=== PATIENT | female | born 1965 | race Caucasian/White ===

== ENCOUNTER 2016-04-12 12:54 | Outpatient (CLI) | payer OTHER ==
[~2016-04-12] VITALS: Ht 167.6 cm; Wt 118.6 kg
[~2016-04-12 12:54] MED LIST: ASPI-664 PO; CEPH-443 PO; FER325 PO; HYDR-3498 PO; IBUP-1542 PO; INSU100C SC; LANT3I SC; MTF1000T PO; NS IRRIGATION TOPICAL; SERT50TA PO
[2016-04-12 13:16] VITALS: Ht 167.6 cm; Wt 118.6 kg
[2016-04-12 13:17] VITALS: BP 134/78; PULSE 108; RESP 18
--- NOTE | 2016-04-12 18:14 | CONS ---
[facility] INITIAL OUTPATIENT CONSULTATION NOTE PLACE OF SERVICE: [facility] DATE OF CONSULTATION: 04/12/2016 IMPRESSION AND PLAN: A very pleasant 51-year-old lady with 5 operations in her abdomen since 2003, four of which were for incarcerated hernias or complications of those, presenting with what appears to be a small seroma above her mesh and no evidence of major recurrence of her hernia. The fluid itself appears to be more consistent with seroma. My suspicion that this is infected is low, and the CT scan and her physical exam and clinical picture support this diagnosis. It would be important for us to have a review of the images by our radiologist, and if they believe that there is utility in sampling the fluid for cultures, we can certainly do so under ultrasound guidance. Fortunately, I do not see any indication for acute surgical intervention. I explained all of this to the patient and answered all her questions to the best of my ability. The patient appeared to understand and wished to proceed. With above assessment, I have recommended the followin. Review of images by Radiology. 2. Possible ultrasound-guided aspiration of fluid above the mesh and to culture this. 3. Follow up with us after above is done. Thank you again for allowing us to participate in the care of this very pleasant lady and I am certain her wonderful family. If there are any questions , please feel free to call me at [phone]. TOTAL VISIT TIME: Forty-five minutes, of which more than half was spent in face -to-face discussion with the patient (no family present during any of my discussions with the patient) as well as coordination of care between multiple physicians and providers. UPDATED CLINICAL SUMMARY: A very pleasant 51-year-old lady with a very complex past surgical history starting with cholecystectomy at [facility] in 2003 that was complicated by a ventral hernia requiring emergency operation on 10/24/[address] Jackie Vora at [facility] , where a mesh repair was performed. Repeat hernia repaired as an emergency on 10/05/2008 for incarceration with mesh placement by Dr. Jackie Vora. Repeat revision of the hernia at [facility] on 12/18/[address] Donato Henley with evacuation of a hematoma and resection of part of the mesh and a repeat operative repair of incarcerated incisional hernia, laparoscopic converted to open with placement of hernia mesh 15 x [address] Jose Ellison at [facility] on 08/18/2015. Presenting with abdominal pain. COMORBIDITIES: 1. Above-mentioned operations. 2. BMI 42.2. 3. Hyperlipidemia. 4. Diabetes mellitus type 2. 5. Hypertension. 6. Dysuria. 7. Diabetic retinopathy. 8. Depression. 9. Grief. HISTORY OF PRESENT ILLNESS: The patient is a very pleasant 51-year-old lady with complex past surgical history as outlined above and a number of medical issues who was kindly referred to us for surgical opinion regarding her abdomen. She has been complaining of having abdominal pain and on-and-off nausea and vomiting which she reports having 3 or 4 times a week. No reported fevers or chills, difficulties with diarrhea, although the patient does have chronic constipation. No blood in the stool or urine. Appetite has been down, but she has not reported any significant weight loss. ALLERGIES: NO KNOWN DRUG ALLERGIES. MEDICATIONS: 1. Aspirin. 2. Motrin. 3. Lantus. 4. Humalog. 5. Glucophage. 6. Zoloft. SOCIAL HISTORY: The patient lives with her family. She does not report any major smoking, drinking or intravenous drug use. FAMILY HISTORY: No reported major medical, surgical or oncologic problems in the family. REVIEW OF SYSTEMS: Other than the above mentioned, there are no other pertinent positives or pertinent negatives in a complete 14-point review of systems. PHYSICAL EXAMINATION: GENERAL: The patient appears to be a very pleasant lady of descent, appearing stated age, sitting in a chair comfortably and in no acute distress. Her BMI is 42.2. VITAL SIGNS: Her temperature is 99.0, blood pressure 134/78, pulse 108, respiratory rate 18, pulse oximetry 95% on room air. HEENT: Normocephalic and atraumatic. Extraocular muscles and hearing are grossly intact bilaterally and symmetrically. Sclerae are nonicteric. Oral cavity is clear; oral mucosa appeared to be pink and moist. Dentition: fair. NECK: Supple. There is no lymphadenopathy or JVD. There is no submental, submandibular or supraclavicular lymphadenopathy. CHEST: Rises symmetrically with each breath; patient is breathing comfortably. There are no audible wheezes, rales or rhonchi on the gross exam. HEART: Pulse is regular and palpable on the leftt wrist. Capillary refill was normal. Carotid pulses are palpable bilaterally and symmetrically in the neck. EXTREMITIES: Lower extremities contain no pitting edema around the ankles bilaterally and symmetrically. ABDOMEN: Soft, nondistended and very minimally tender to palpation in the midline where there is a well-healed incision without any evidence of hernia on examination with Valsalva. There is no area of discharge and no fluctuations. No evidence of organomegaly, caput medusae, engorged subcutaneous veins or ascites. SKIN: Appears to be pink and feels warm to touch. NEUROLOGIC: Awake, alert, and follows commands appropriately. LABORATORY VALUES: Latest available date 08/30/2015: INR 1.1. White blood cell count 12, hemoglobin 10.2, platelets 598. Note that cultures sent in the 2008 operation were not growing any organisms. IMAGING: The patient has had a recent CT scan at [facility] on 03/02/2016 that essentially shows a small 2 x 3 cm area of fluid above where the area of the mesh is. The mesh itself appears to be intact without any evidence of major hernia. There is no rim enhancement, but there is mild surrounding fat stranding. The findings were consistent with postsurgical fluid collection with superinfection not excluded. Liver was found to be mildly enlarged with decreased attenuation. Dictated By: ALBERTO DENNIS/SRINI Conf#: [id number] DID#: [id number] CC: Donato Bullock;*EndCC* MTDD
== END 2016-04-12 15:59 | disposition home or self-care (01) ==
LOC: HPC 12:54
PROVIDERS: ATTEND Transplant Surgery
DX: R10.9 Unspecified abdominal pain (principal); R16.0 Hepatomegaly, not elsewhere classified; E78.5 Hyperlipidemia, unspecified; E11.9 Type 2 diabetes mellitus without complications; I10 Essential (primary) hypertension; R30.0 Dysuria; E11.319 Type 2 diabetes mellitus with unspecified diabetic retinopathy without macular edema; F32.9 Major depressive disorder, single episode, unspecified; Z79.82 Long term (current) use of aspirin
CPT/HCPCS: G0463

== ENCOUNTER 2016-05-14 07:30 | Day surgery (SDC) | payer OTHER ==
[~2016-05-14] VITALS: Ht 167.6 cm; Wt 120.1 kg
[~2016-05-14 07:30] MED LIST changes: -CEPH-443 PO; -FER325 PO; -HYDR-3498 PO; -NS IRRIGATION TOPICAL
[2016-05-14 08:24] VITALS: BP 131/74; PULSE 74; RESP 16
[2016-05-14 08:26] VITALS: Ht 167.6 cm; Wt 120.1 kg
[2016-05-14] MEDS ORDERED: SOD CHLORIDE 0.9% 100 ML ONE (09:10)
[2016-05-14] MEDS ORDERED: IODIXANOL LOCM 100 ML BTL ONE (09:10)
--- NOTE | 2016-05-14 18:42 | RADRPT ---
PROCEDURE: CT Abdomen and Pelvis with contrast. CLINICAL INDICATION: Abdomen and pelvis pain. History of abdominal wall hernia repair with fluid c ollection. TECHNIQUE: CT scan of the abdomen and pelvis with contrast was performed. The patient was scanned following the uncomplicated intravenous administration of 100 cc of Visipaque 320. Coronal and sag ittal reformatted images were obtained from the axial source images. Images were reviewed on a high- resolution PACS workstation. Total exam DLP is 1456.24 mGy-cm. CTDIvol is 23.23 mGy. One or more of the following dose reduction techniques were used: Automated exposure control, adjustment of the mA and/or kV according to patient size, use of iterative reconstruction technique. COMPARISON: 08/30/2015. FINDINGS: The lung bases are normal. There is no pleural effusion. The liver is normal in size and attenuation. There is no focal hepatic lesion. The gallbladder is surgically absent with clips noted in the gallbladder bed. The bile ducts are no rmal. The spleen is normal in size. There is no focal splenic lesion. Both adrenals are normal with no enlargement or mass. The pancreas is unremarkable with no mass or evidence of pancreatitis. Both kidneys demonstrate normal contrast enhancement. There is no renal mass or hydronephrosis. The abdominal aorta is not dilated. Small calcifications are present in the aorta consistent with a therosclerosis. There is no retroperitoneal lymphadenopathy or mass. There is no pelvic lymphadenopathy or mass. The bladder and distal ureters are normal. An IUD is present in the endometrial canal in satisfactor y position. The periappendiceal region is unremarkable with no evidence of appendicitis. The bowel and mesentery are normal. Previously noted rim enhancing fluid collection in the anterior abdominal wall extending into the anterior peritoneum is now much smaller measuring approximately 3 .4 x 4.7 cm; prior was 8.9 x 7.3 cm. Mild peripheral enhancement is noted. There is no other fluid collection or mass. There is no free air. There are degenerative changes with disk space narrowing and osteophytes at L5-S1. The osseous stru ctures are otherwise unremarkable with no fracture or lytic lesion. IMPRESSION: 1. Status post cholecystectomy. 2. Atherosclerosis. 3. IUD in satisfactory position. 4. Fluid collection in the anterior abdominal wall extending into the anterior peritoneum is now mu ch smaller indicating it is probably a seroma rather than abscess. Aspiration was not performed. 5. Degenerative changes at L5-S1. 6. Otherwise unremarkable study. Call report: A call report of the findings was made to Dr. Santana on 05/14/2016 at 1800 hours. RPTAT: QQ .Daniel Martinez MD, Date Time Electronically viewed and signed by .Daniel Martinez MD, MD on 05/14/2016 18:42 .R/
== END 2016-05-14 11:20 | disposition home or self-care (01) ==
LOC: SDS 07:30
PROVIDERS: ATTEND Transplant Surgery
DX: K43.9 Ventral hernia without obstruction or gangrene (principal); Z53.9 Procedure and treatment not carried out, unspecified reason; E78.5 Hyperlipidemia, unspecified; E11.319 Type 2 diabetes mellitus with unspecified diabetic retinopathy without macular edema; I10 Essential (primary) hypertension
CPT/HCPCS: 74177; Q9967; Z7610

== ENCOUNTER 2016-06-02 10:35 | Outpatient (CLI) | payer OTHER ==
[~2016-06-02] VITALS: Ht 167.6 cm; Wt 121.4 kg
[2016-06-02 10:40] VITALS: BP 142/82; PULSE 104; RESP 20; Ht 167.6 cm; Wt 121.4 kg
--- NOTE | 2016-06-02 11:27 | PN ---
Date/Time of Note Date/Time of Note DATE: 06/02/16 TIME: 11:20 Assessment/Plan Assessment/Plan Assessment/Plan [facility] Progress Note Date of Service: 06/02/16 Today's Impression & Plan: Overall stable with ongoing issues with intermittent mid lower abd pain. No sign of infection and Dr. Martinez from did not see a need to interrogate the small fluid collection that is above the patients mesh. No obvious hernia or surgically correctable issue from my standpoint. Given patient's very complex history with multiple complications, my recommendation to patient was to continue investigating with her PCP regarding possible medical reasons for pain (e.g. GI consultation). I also recommended visit with Dr. Alba, who is an abdominal wall specialist regarding another surgical opinion. I explained all of this to the patient and answered all her questions to the best of my ability. The patient appeared to understand and wished to proceed. With above assessment, I have recommended the followin. Consider GI consultation for endoscopy 2. Continued search for medical reasons for pain 3. Consider second opinion from Dr. Richard Alba 4. Follow up with us prn Thank you again for allowing us to participate in the care of this very pleasant lady and I am certain her wonderful family. If there are any questions , please feel free to call me at [phone]. TOTAL VISIT TIME: 20 minutes, of which more than half was spent in face-to- face discussion with the patient (no family present during any of my discussions with the patient) as well as coordination of care between multiple physicians and providers. UPDATED CLINICAL SUMMARY: A very pleasant 51-year-old lady with a very complex past surgical history starting with cholecystectomy at [facility] in 2003 that was complicated by a ventral hernia requiring emergency operation on 10/24/[address] Jackie Vora at [facility] , where a mesh repair was performed. Repeat hernia repaired as an emergency on 10/05/2008 for incarceration with mesh placement by Dr. Jackie Vora. Repeat revision of the hernia at [facility] on 12/18/[address] Donato Henley with evacuation of a hematoma and resection of part of the mesh and a repeat operative repair of incarcerated incisional hernia, laparoscopic converted to open with placement of hernia mesh 15 x [address] Jose Ellison at [facility] on 08/18/2015. Presenting with abdominal pain. COMORBIDITIES: 1. Above-mentioned operations. 2. BMI 42.2. 3. Hyperlipidemia. 4. Diabetes mellitus type 2. 5. Hypertension. 6. Dysuria. 7. Diabetic retinopathy. 8. Depression. 9. Grief. Subjective: No major events or complaints other than above intermittent pain; no n/v/d; no sob or cp; + flatus; + BM and normal; + activity Objective: Vitals: See below Exam: GENERAL: On exam, the patient was sitting in a chair and appeared to be comfortable and in no acute distress. ABDOMEN: Soft, minimal to no sig tender and nondistended. Incisions are clean, dry and intact without any evidence of erythema, edema, discharge, or hernia. There are no peritoneal signs or guarding. SKIN: Skin appears to be pink and feels warm to touch. NEUROLOGIC: Patient is awake, alert, and follows commands appropriately. Exam/Review of Systems Vital Signs Vitals Vital Signs Date Time Temp Pulse Resp B/P Pulse Ox O2 Delivery O2 Flow Rate FiO2 06/02/16 10:40 99.1 104 20 142/82 95 Room Air ALBERTO MARSICAL M.D. Jun 02, 2016 11:27
== END 2016-06-02 17:00 | disposition home or self-care (01) ==
LOC: HPC 10:35
PROVIDERS: ATTEND Transplant Surgery
DX: K43.9 Ventral hernia without obstruction or gangrene (principal); E11.9 Type 2 diabetes mellitus without complications; I10 Essential (primary) hypertension
CPT/HCPCS: G0463

== ENCOUNTER 2018-10-09 12:08 | Emergency (ER) | payer OTHER ==
[~2018-10-09] VITALS: Ht 167.6 cm; Wt 115.3 kg
[~2018-10-09 12:08] MED LIST changes: -ASPI-664 PO; +ASPI-817 PO; +CEPH-443 PO; +CHLO237L TP
[2018-10-09 12:23] VITALS: BP 113/56; PULSE 79; RESP 16; Ht 167.6 cm; Wt 115.3 kg
--- NOTE | 2018-10-09 13:24 | ERD ---
ER Documentation Chief Complaint Chief Complaint LEFT FOOT 2ND TOE PAIN AFTER PEDICURE 1 1/2 WKS AGO ROS All systems reviewed and are negative except as per history of present illness. Medications Home Meds Active Scripts Chlorhexidine Gluconate (ANTISEPTIC SKIN CLEANSER) 237 Ml Liquid, 10 ML TP BID for toe infection for 10 Days, #1 BOTTLE Prov:ZULEYKA NGUYEN DO 10/09/18 Cephalexin* (Keflex*) 500 Mg Capsule, 500 MG PO TID for toe infection for 7 Days, #21 CAP Prov:ZULEYKA NGUYEN DO 10/09/18 Ibuprofen* (Motrin*) 600 Mg Tab, 600 MG PO Q8, #30 TAB 0 Refills Prov:SABRINA BOYER PA-C 06/21/15 Reported Medications Sertraline Hcl* (Zoloft*) 50 Mg Tablet, 50 MG PO DAILY PRN for INSOMNIA, #30 TAB 08/31/15 Aspirin* (Aspirin* EC) 81 Mg Tablet.dr, 81 MG PO DAILY, TAB 08/31/15 Insulin Lispro (Humalog) 100 U/Ml Cartridge, 10 UNITS SC WITH MEALS, EA 08/19/15 Metformin* (Glucophage*) 1,000 Mg Tablet, 1000 MG PO BID, #60 TAB 08/19/15 Insulin Glargine* (Lantus*) 100 Unit/Ml Soln, 30 UNIT SC DAILY, #1 VIAL 08/19/15 Allergies Allergies: Coded Allergies: No Known Allergy (Unverified , 05/14/16) PMhx/Soc History of Surgery: Yes (4 hernia repair surgeries) Anesthesia Reaction: No Hx Neurological Disorder: No Hx Respiratory Disorders: No Hx Cardiac Disorders: Yes (hypertension) Hx Psychiatric Problems: No Hx Miscellaneous Medical Probl: No Hx Alcohol Use: No Hx Substance Use: No Hx Tobacco Use: No Physical Exam Vitals Vital Signs Date Temp Pulse Resp B/P (MAP) Pulse Ox O2 O2 Flow FiO2 Time Delivery Rate 10/09/18 97.5 79 16 113/56 98 12:23 (75) Physical Exam Const: No acute distress Head: Atraumatic Eyes: Normal Conjunctiva ENT: Normal External Ears, Nose and Mouth. Neck: Full range of motion. No meningismus. Resp: Clear to auscultation bilaterally Cardio: Regular rate and rhythm, no murmurs Abd: Soft, non tender, non distended. Normal bowel sounds Skin: No petechiae or rashes Back: No midline or flank tenderness Ext: No cyanosis, or edema Neur: Awake and alert Psych: Normal Mood and Affect Departure Diagnosis: Primary Impression: Pain of toe Laterality: left Qualified Codes: M79.675 - Pain in left toe(s) Condition: Fair Patient Instructions: Cellulitis Referrals: [facility] YOU HAVE RECEIVED A MEDICAL SCREENING EXAM AND THE RESULTS INDICATE THAT YOU DO NOT HAVE A CONDITION THAT REQUIRES URGENT TREATMENT IN THE EMERGENCY DEPARTMENT. FURTHER EVALUATION AND TREATMENT OF YOUR CONDITION CAN WAIT UNTIL YOU ARE SEEN IN YOUR DOCTORS OFFICE WITHIN THE NEXT 1-2 DAYS. IT IS YOUR RESPONSIBILITY TO MAKE AN APPOINTMENT FOR FOL-UP CARE. IF YOU HAVE A PRIMARY DOCTOR --you should call your primary doctor and schedule an appointment IF YOU DO NOT HAVE A PRIMARY DOCTOR YOU CAN CALL OUR PHYSICIAN REFERRAL HOTLINE AT IF YOU CAN NOT AFFORD TO SEE A PHYSICIAN YOU CAN CHOSE FROM THE FOLLOWING [facility] [address] [facility] [address] [facility]. [facility] [address] [facility]. [facility] [address] [facility] [address] [facility]. [facility] [address] [facility]. [facility]. [address] Additional Instructions: Llame al doctor MAANA y lionel abdullahi MARLEE PARA DENTRO DE 1-2 MULLINS.Dgale a la secretaria que nosotros le instruimos hacer esta marlee.Avise o llame si garrett condicin se empeora antes de la marlee. Regresa aqui si peor o no mejor. recomendar seguimiento con podologa dentro de abdullahi semana ZULEYKA NGUYEN DO Oct 09, 2018 13:24
== END 2018-10-09 13:24 | disposition home or self-care (01) ==
LOC: E/R 12:08
DX: M79.675 Pain in left toe(s) (principal); I10 Essential (primary) hypertension; Z79.4 Long term (current) use of insulin; Z79.82 Long term (current) use of aspirin
CPT/HCPCS: 99283